=== PATIENT | female | born 1945 | race Caucasian/White ===

== ENCOUNTER → 2017-08-15 | Outpatient (CLI) | payer MEDICARE ==
[~2017-08-15] MED LIST: AMLO10TA2 PO; ASPI-983 PO; BNZ40T PO; CARV12.53 PO; CETI10TA20 PO; FURO20TA4 PO; HYDR-3876 PO; HYDR25TA4 PO; LOSA100T28 PO; OXYB5TAB9 PO; PRAV40TA2 PO
--- NOTE | 2017-08-15 08:18 | Diagnostic Imaging Report ---
INDICATION: Hypertension, and obesity history of diabetes. TECHNIQUE: Multiple real-time grayscale sonographic images, color and duplex Doppler images were obtained of the urinary system. FINDINGS: The aortic velocity is 125 cm/sec. The RIGHT kidney measures 11.0 x 4.7 x 4.6 cm. The right renal parenchyma and collecting system appear unremarkable. Right renal artery is visualized in its mid and distal aspect, obscured proximally. The maximum renal artery velocity is distally at 119cm/sec. The maximum renal artery/aortic ratio is 0.952. The LEFT kidney measures 10.8 x 5.3 x 4.9 cm. The left renal parenchyma and collecting system appear unremarkable. Left main renal artery is visualized in its mid and distal aspect, obscured proximally. The maximum renal artery velocity is mid aspect at 96cm/sec. The maximum renal artery/aortic ratio is 0.768. The urinary bladder is unremarkable. Bilateral ureteral jets are present. IMPRESSION: 1. Unremarkable renal ultrasound with doppler. (RA/AO ratios > 3.0 may suggest potential hemodynamically significant stenosis.) Dictated by: Dictated on workstation # [id number]
== END ==
LOC: RAD 06:52
PROVIDERS: ATTEND Internal Medicine Cardiovascular Disease
DX: E66.9 Obesity, unspecified (principal); I10 Essential (primary) hypertension; E78.2 Mixed hyperlipidemia; R00.2 Palpitations; E11.9 Type 2 diabetes mellitus without complications; Z82.49 Family history of ischemic heart disease and other diseases of the circulatory system
CPT/HCPCS: 93975

== ENCOUNTER → 2017-08-23 | Outpatient (CLI) | payer MEDICARE ==
[~2017-08-23] MED LIST changes: +CATHETER FLUSH 10 ML SYR IV PRN
[2017-08-23 08:50] VITALS: BP 148/63
[2017-08-23 09:06] VITALS: BP 239/72
[2017-08-23 09:07] VITALS: BP 231/63
--- NOTE | 2017-08-23 17:21 | STRESS TEST ---
DATE OF SERVICE: EXERCISE MYOVIEW STRESS TEST REPORT REFERRING PHYSICIAN: Lexy Chan. Baseline heart rate is 58, baseline blood pressure 170/62. Baseline EKG is sinus rhythm with no ischemic changes. In summary, the patient was injected with 10.82 mCi of technetium-99 Myoview and the resting images were obtained. Then, she started exercising with a baseline heart rate, blood pressure and EKG mentioned above. She was able to exercise for 5 minutes on a standard Nicholas protocol. With peak exercise level, EKG was showing minimal nondiagnostic changes. There was severe hypertension noted with blood pressure 231/63 at peak stress level. The patient was injected with 32.0 mCi of technetium-99 Myoview. The resting and stress images were reviewed and compared in the short axis, horizontal long axis, and vertical long axis views. Review of the images showed breast attenuation affecting the quality of the images with mild ischemia involving the mid to apical anterior wall and anterolateral wall. SSS is 8, SDS 6, TID value 1.04. On the gated images, the left ventricle appeared to be in normal size with normal contractility. Calculated ejection fraction is 76%. CONCLUSION: 1. Fair exercise tolerance, a total of 5 minutes on standard Nicholas protocol, total of 7 METS achieving 100% of maximum expected heart rate. 2. Severe hypertensive response to exercise, returned to baseline during recovery. 3. Minimal nondiagnostic EKG changes with exercise, returned to baseline during recovery. 4. Breast attenuation affecting the quality of the images with questionable mild ischemia involving the mid to apical anterior wall and anterolateral wall. 5. Normal left ventricular size with normal contractility. Calculated ejection fraction of 76%. Job ID: [id number] DocumentID: [id number] Dictated Date: 08/23/2017 13:51:25 Bodybuilder Date: 08/23/2017 17:20:19 Dictated By: DAVID TINSLEY MD
== END ==
LOC: CARD 07:07 → EDUNIT# 07:30
PROVIDERS: ATTEND Internal Medicine Cardiovascular Disease
DX: I10 Essential (primary) hypertension (principal); E78.2 Mixed hyperlipidemia; R00.2 Palpitations; E11.9 Type 2 diabetes mellitus without complications; E66.9 Obesity, unspecified; Z82.49 Family history of ischemic heart disease and other diseases of the circulatory system
CPT/HCPCS: 78452; 93017

== ENCOUNTER 2017-09-06 06:40 | Day surgery (SDC) | payer MEDICARE ==
[2017-09-06] VITALS (11 sets, daily range): BP systolic 102–145; BP diastolic 49–84
[~2017-09-06] VITALS: Ht 160 cm; Wt 84.8 kg
[2017-09-06] MEDS ORDERED: NS IV 1000 ML 1,000 ML IV SCH ×2 (06:45→09:03)
[2017-09-06] MEDS ORDERED: HEParin (CATH LAB) 2,000 ML IV ONE (06:48)
[2017-09-06] MEDS ORDERED: NS IV 1000 ML 1,000 ML ONE (06:48)
[2017-09-06] MEDS ORDERED: LIDOCAINE 1% INJ 20 ML 20 ML VIAL ONE (06:48)
[2017-09-06] MEDS ORDERED: BNZ40T PO (07:17)
[2017-09-06] MEDS ORDERED: FURO20TA4 PO (07:17)
[2017-09-06] MEDS ORDERED: OXYB5TAB9 PO (07:17)
[2017-09-06] MEDS ORDERED: CETI10TA20 PO (07:17)
[2017-09-06] MEDS ORDERED: AMLO10TA2 PO (07:17)
[2017-09-06] MEDS ORDERED: CARV12.53 PO (07:17)
[2017-09-06] MEDS ORDERED: PRAV40TA2 PO (07:17)
[2017-09-06] MEDS ORDERED: ASPI-983 PO (07:17)
[2017-09-06] MEDS ORDERED: LOSA100T28 PO (07:17)
[2017-09-06] MEDS ORDERED: HYDR25TA4 PO (07:17)
[2017-09-06 07:18] LABS: HEMOGLOBIN 12.2 G/DL (11.5-16.0); MEAN PLATELET VOLUME 12.2 FL (7.4-10.4); RED BLOOD COUNT 3.95 10^6/uL (4.35-5.85); RED CELL DISTRIBUTION WIDTH 12.9 % (10.0-14.5); WHITE BLOOD COUNT 8.8 10^3/uL (4.3-11.0)
[2017-09-06] MEDS ORDERED: HYDR-3876 PO (07:20)
[2017-09-06 07:28] LABS: PROTHROMBIN TIME PATIENT 13.3 SEC (12.2-14.7)
[2017-09-06 07:38] LABS: ALBUMIN 4.2 GM/DL (3.2-4.5); BILIRUBIN,TOTAL 0.7 MG/DL (0.1-1.0); CALCIUM 9.2 MG/DL (8.5-10.1); CREATININE SERUM 1.44 MG/DL (0.60-1.30); POTASSIUM 3.2 MMOL/L (3.6-5.0); TOTAL PROTEIN 7.5 GM/DL (6.4-8.2)
[2017-09-06] MEDS ORDERED: MIDAZOLAM 5 MG/5 ML (VERSED) VIAL ONE (07:56)
[2017-09-06] MEDS ORDERED: fentaNYL INJECTION 100 MCG/2 ML AMP ONE (07:56)
--- NOTE | 2017-09-06 08:35 | Diagnostic Imaging Report ---
INDICATION: Abnormal stress test, chest pain, hypertension. FINDINGS: Heart size is at the upper limits of normal. There is no substantial vascular congestion and there is no evidence for edema, pneumonia, effusion or pneumothorax. IMPRESSION: Upper limits heart size but no acute appearing abnormality. Dictated by: Dictated on workstation # [id number]
--- NOTE | 2017-09-06 08:42 | Cardiac Procedure Note-CS/ASA ---
Pre-Procedure Note Pre-Op Procedure Note H&P Reviewed The H&P was reviewed, patient examined and no changes noted. Date H&P Reviewed: Sep 06, 2017 Time H&P Reviewed: 08:41 Conscious Sedation Pre-Proced Time Reviewed: 08:41 ASA Class: 3 Airway Mallampati Classification: (wichita appropriate class) I. II. III, IV Lungs Heart ASA score ASA 1: a normal healthy patient ASA 2: a patient with a mild systemic disease (mid diabetes, controlled hypertension, obesity x ASA 3: a patient with a severe systemic disease that limits activity (angina , COPD, prior Myocardial infarction) ASA 4: a patient with an incapacitating disease that is a constant threat to life (CHF, renal failure) ASA 5: a moribund patient not expected to survive 24 hrs. (ruptured aneurysm) ASA 6: a declared brain patient whose organs are being harvested. For emergent operations, add the letter E after the classification Grade 3 Sedation Plan: Analgesia, Amnesia, Plan communicated to team members, Discussed options with patient/fam, Discussed risks with patient/fam Note The patient is an appropriate candidate to undergo the planned procedure, sedation, and anesthesia. The patient immediately re-assessed prior to indication. DAVID TINSLEY MD Sep 06, 2017 08:42
--- NOTE | 2017-09-06 09:06 | Discharge Inst-Post CATH ---
Discharge Inst-CATH Post Cardiac Cath D/C Inst Follow Up/Plan Appointment with Dr. Bennett's office in 2-4 weeks CARDIAC CATH DISCHARGE INSTRUCTIONS *Hold Metformin for 48 hours post heart cath. ACTIVITY * Go Home directly and rest. * Limit activity of the leg (or wrist if it was used) for 7 days including aerobics, swimming, jogging, bicycling, etc. * Restrict stair-climbing for 7 days if possible, if not, climb up with your non -cath leg, then bring together on the same step. * Avoid lifting, pushing, pulling or excessive movement of the affected extremity for 7 days. * Customary sexual activity may be resumed after 2 days-use caution not to use a position that strains or causes pain to the affected extremity. * No driving for 24 hours. * NO SMOKING. * Avoid straining for bowel movements for 7 days. * Gentle walking on level ground is allowed. * Returning to work will depend on the type of procedure and the results. Your doctor will discuss this with you. CALL YOUR DOCTOR FOR ANY OF THE FOLLOWING: *If bleeding from the puncture site occurs- Apply gentle pressure to site with clean cloth and call your doctor or EMS. * If a knot or lump forms under the skin, increases in size, or causes pain. * If bruising appears to be worsening or moving further down your leg instead of disappearing. * Temperature above 101 F. CARE OF YOUR GROIN INCISION; * Bruising or purple discoloration of the skin near the puncture site is common. * You may shower only, no bathtub bathing for 5 days. Be careful to avoid slipping as your leg may feel stiff. * If a closure device was used on your femoral artery, please see the attached guide regarding care of the device and your leg. * REMOVE the dressing from your groin the next day after your procedure in the shower. CARE OF YOUR WRIST INCISION; * Bruising or purple discoloration of the skin near the puncture site is common. * You may shower. * DO NOT submerge wrist. * Remove dressing in 24 hours. DAVID BENNETT MD Sep 06, 2017 09:06
--- NOTE | 2017-09-06 09:11 | Cardiac Cath Report ---
Cardiac Cath Report Physician (s)/Patient Support Assistant (s) Physician DAVID TINSLEY MD Pre-Procedure Diagnosis Pre-Procedure Diagnosis: Coronary artery disease, malignant hypertension Post-Procedure Note Procedure Start Date: Sep 06, 2017 Name of Procedure: Left heart catheterization Selective bilateral renal angiogram Findings/Procedure Note PROCEDURE NOTE: After explaining the procedure to the patient, all pros and cons were explained , all questions were answered. The patient signed the consent and then she was placed on the cardiac catheterization laboratory. Groin was prepped SL fashion local anesthesia was used. Sheath placed in the right femoral artery. Angie right and left catheter were used to access the coronary system. Angie right was prolapsed into the left ventricular cavity, pressure was measured, pullback LV to aorta was done, no left ventriculogram was done The Angie right catheter was selectively engaged in the left renal artery and angiogram was done then selective right renal angiogram was done after engaging in the right renal artery At the end of the procedure the sheath was removed. 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 Mild coronary artery disease nonobstructive disease 2. Mildly elevated left ventricular end-diastolic pressure, hypertensive heart disease 3. Normal renal arteries with no obstructive disease DISCUSSION AND RECOMMENDATION: Continue maximizing medical therapy no intervention is needed Anesthesia Type: Conscious Sedation Estimated blood loss (mL): 10 ml Contrast Amount: 40 ml Total Radiation Dose: 1047 mGy Post-Procedure Diagnosis Post-operative diagnosis: Coronary artery disease Malignant hypertension Hyperlipidemia Chest pain nonspecific etiology DAVID TINSLEY MD Sep 06, 2017 09:10
[2017-09-06] MEDS ORDERED: PATIENT MAY USE OWN MEDS, ALL PO SCH (09:15)
== END 2017-09-06 13:35 | disposition home or self-care (01) ==
LOC: CATH 06:40 → SURG 09:21 → CATH 13:35
PROVIDERS: ATTEND Internal Medicine Cardiovascular Disease
DX: I25.10 Atherosclerotic heart disease of native coronary artery without angina pectoris (principal); I10 Essential (primary) hypertension; E78.5 Hyperlipidemia, unspecified; R07.9 Chest pain, unspecified; E11.9 Type 2 diabetes mellitus without complications; R09.89 Other specified symptoms and signs involving the circulatory and respiratory systems; Z79.899 Other long term (current) drug therapy; Z79.82 Long term (current) use of aspirin; F17.210 Nicotine dependence, cigarettes, uncomplicated; Z68.32 Body mass index [BMI] 32.0-32.9, adult
CPT/HCPCS: 36252; 36415; 71045; 80053; 80061; 85027; 85610; 85730; 87081; 93458

== ENCOUNTER → 2018-01-09 | Outpatient (CLI) | payer MEDICARE ==
[~2018-01-09] MED LIST changes: -AMLO10TA2 PO; +AMLO10TA6 PO; +B12/1TAB PO; +BENA40TA5 PO; -BNZ40T PO; -CATHETER FLUSH 10 ML SYR IV PRN; -LOSA100T28 PO; +LOSA100T8 PO; +NEBI5TAB8 PO
== END | disposition home or self-care (01) ==
LOC: PREOP 06:38
PROVIDERS: ATTEND Urology
DX: Z01.818 Encounter for other preprocedural examination (principal)

== ENCOUNTER 2018-01-10 07:14 | Day surgery (SDC) | payer MEDICARE ==
[~2018-01-10] VITALS: Ht 160 cm; Wt 84.8 kg
[~2018-01-10 07:14] MED LIST changes: -B12/1TAB PO; -NEBI5TAB8 PO
[2018-01-10 07:35] VITALS: BP 178/85
--- NOTE | 2018-01-10 07:38 | Progress Note-Pre Operative ---
Pre-Operative Progress Note H&P Reviewed The H&P was reviewed, patient examined and no changes noted. Date Seen by Provider: Jan 10, 2018 Time Seen by Provider: 07:38 Date H&P Reviewed: Jan 10, 2018 Time H&P Reviewed: 07:38 Pre-Operative Diagnosis: CYSTOCELE, MIXED INCONTINENCE, ISD, AND OAB PORSCHE CHAMPAGNE MD Jan 10, 2018 7:38 am
--- NOTE | 2018-01-10 07:39 | Progress Note-Post Operative ---
Post-Operative Progess Note Surgeon (s)/Four Corner Former Machine Operator (s) Surgeon PORSCHE CHAMPAGNE MD Four Corner Former Machine Operator: NONE Pre-Operative Diagnosis CYSTOCELE, MIXED INCONTINENCE, ISD, AND OAB Post-Operative Diagnosis SAME Procedure & Operative Findings Date of Procedure 01/10/18 Procedure Performed/Findings ANTERIOR REPAIR, PVS AND CYSTOSCOPY Anesthesia Type GENERAL Estimated Blood Loss Estimated blood loss (mL): NEGLIGIBLE Specimens/Packing Specimens Removed NONE TO PATHOLOGY Packing: ESTRACE VAGINAL PACK PORSCHE CHAMPAGNE MD Jan 10, 2018 7:39 am
[2018-01-10] MEDS ORDERED: cefTRIAXone 1 GM/NS 50 ML IVPB IV ONE ×2 (07:45)
[2018-01-10] MEDS ORDERED: HYDROcodone/APAP 10 MG/325 MG (LORTAB) TAB PO PRN (07:45)
[2018-01-10] MEDS ORDERED: B12/1TAB PO (08:03)
[2018-01-10] MEDS ORDERED: NEBI5TAB8 PO (08:03)
[2018-01-10] MEDS ORDERED: LACTATED RINGERS 1,000 ML IV SCH (09:00)
[2018-01-10] MEDS ORDERED: ONDANSETRON 4 MG/2 ML (SDV) Z0FRAN ONE (09:03)
[2018-01-10] MEDS ORDERED: LIDOCAINE PF 2% 5 ML (XYLOCAINE) VIAL ONE (09:03)
[2018-01-10] MEDS ORDERED: SEVOFLURANE (ULTANE) 15 ML INHAL SOLN ONE ×3 (09:03→11:08)
[2018-01-10] MEDS ORDERED: proPOfol 200 MG/20 ML (DIPRIVAN) VIAL IV ONE (09:03)
[2018-01-10] MEDS ORDERED: fentaNYL INJECTION 100 MCG/2 ML AMP ONE (09:13)
[2018-01-10] MEDS ORDERED: MIDAZOLAM 2 MG/2 ML (VERSED) VIAL ONE (09:13)
[2018-01-10] MEDS ORDERED: LIDOCAINE/EPI 1%-1:200,000 (XYLOCAINE) 10 ML VIAL ONE (09:23)
[2018-01-10] MEDS ORDERED: ESTRADIOL VAGINAL CREAM 42.5 GM (ESTRACE) VG ONE (09:24)
[2018-01-10] MEDS ORDERED: ATROPINE INJ 0.4 MG/ML SDV ONE (10:51)
[2018-01-10] MEDS ORDERED: ROCURONIUM 10 MG/ML 5 ML SYRINGE IV ONE (10:51)
[2018-01-10] MEDS ORDERED: LACTATED RINGERS 1,000 ML IV ONE (10:52)
[2018-01-10] MEDS ORDERED: morphine INJ 10 MG/ML 1ML (SYR OR VIAL) ONE (11:16)
[2018-01-10] MEDS ORDERED: MEPERIDINE (DEMEROL) INJ 50 MG/ML IVP ONE (11:30)
[2018-01-10] MEDS ORDERED: morphine INJ 10 MG/ML 1ML (SYR OR VIAL) IVP ONE (11:30)
[2018-01-10] MEDS ORDERED: ONDANSETRON 4 MG/2 ML (SDV) Z0FRAN IVP PRN (11:30)
[2018-01-10] MEDS ORDERED: KETOROLAC 30 MG/ML VIAL IVP ONE (11:30)
[2018-01-10 12:38] VITALS: BP 142/59
[2018-01-10] MEDS: LACTATED RINGERS 1,000 ML IV SCH ×2 (14:01→21:45)
[2018-01-10 15:55] VITALS: BP 138/59
--- NOTE | 2018-01-10 16:05 | OPERATIVE REPORT ---
DATE OF SERVICE: 01/10/2018 PREOPERATIVE DIAGNOSES: 1. Large cystocele. 2. Mixed urinary incontinence with overactive bladder and intrinsic sphincter deficiency. POSTOPERATIVE DIAGNOSES: 1. Large cystocele. 2. Mixed urinary incontinence with overactive bladder and intrinsic sphincter deficiency. OPERATION PERFORMED: Anterior repair, pubovaginal sling and cystoscopy. SURGEON: Luan Champagne MD ANESTHESIA: General. COMPLICATIONS: None. DESCRIPTION OF PROCEDURE: Under satisfactory general anesthesia, the patient in extended lithotomy position, genitalia were prepped and draped in the usual sterile fashion using a separate vaginal prep. Ellis catheter was inserted draining clear urine. The anterior vaginal wall was infiltrated with lidocaine and epinephrine for . A midline incision was made in the anterior vaginal wall for several centimeters all around the cystocele . The mucosa was dissected free from the underlying fascia with no problem. The fascia was approximated with interrupted 2-0 Vicryl giving excellent support to the bladder. The Ellis catheter was removed and cystoscopy confirmed the integrity of the bladder, urethra, ureters, no foreign body visualized. The bladder was left half full to perform a manual Valsalva maneuver which was negative. The catheter was reinserted draining clear fluid. The excess vaginal mucosa was sharply excised and the mucosa was approximated with a running 2-0 Vicryl Rapide suture. Catheter was reinserted draining clear fluid. Estimated blood loss was negligible. Needle, sponge and instrument counts were correct x2. The patient tolerated the procedure and anesthesia well and was sent to recovery room in stable condition after inserting an Estrace vaginal pack. Job ID: [id number] DocumentID: [id number] Dictated Date: 01/10/2018 11:27:00 Land Acquisition Specialist Date: 01/10/2018 16:04:53 Dictated By: LUAN CHAMPAGNE MD
[2018-01-10] MEDS: KETOROLAC 30 MG/ML VIAL IV PRN (18:50)
[2018-01-10 20:20] VITALS: BP 117/46
[2018-01-11 00:35] VITALS: BP 120/60
[2018-01-11] MEDS: KETOROLAC 30 MG/ML VIAL IV PRN ×2 (00:35→05:37)
[2018-01-11 04:00] VITALS: BP 128/62
[2018-01-11] MEDS: LACTATED RINGERS 1,000 ML IV SCH (05:36)
[2018-01-11] MEDS ORDERED: FLU QUADRIvalent (5+ YOA) 2018-2019 (AFLURIA) 0.5 ML IM ONE ×2 (07:15→15:14)
[2018-01-11] MEDS ORDERED: LEVOFLOXACIN 250 MG/50 ML IVPB 50 ML IV SCH (07:40)
[2018-01-11 08:18] VITALS: BP 120/65
--- NOTE | 2018-01-11 11:41 | Progress Note-Urology ---
Progress Note-Urology Progress Notes/Assess & Plan Progress/Assessment & Plan DOING VERY WELL. FEELS GREAT. VOIDING WELL. EMPTIES WELL. DRY. [id number] 87% , ASYMPTOMATIC. SMOKER WITH COPD. WE WILL OBSERVE ON R.A BEFORE DISCHARGE, CONSULT DR ANTWAN LITTLE. Final Diagnosis CYSTOCELE, MIXED INCONTINENCE, OAB, ISD PORSCHE CHAMPAGNE MD Jan 11, 2018 11:41 am
--- NOTE | 2018-01-11 11:43 | Discharge Inst-Urology ---
Discharge Inst-Urology Discharge Medications New, Converted, or Re-newed RX: RX on Chart Patient Instructions/Follow Up Plan Please make appointment to been seen in office in 2 weeks. Rest till then Stay off ASA and Ditropan Keep bowels soft and moving Showers, no bath Increase oral fluids for 48 hours and then as needed. Diet as tolerated. If questions or concerns contact your physician Or seek help at emergency department. PORSCHE CHAMPAGNE MD Jan 11, 2018 11:43 am
[2018-01-11 12:30] VITALS: BP 103/53
--- NOTE | 2018-01-11 18:34 | Anesthesia-General Post-Op ---
General Patient Condition Mental Status/LOC: Same as Preop Cardiovascular: Satisfactory Nausea/Vomiting: Absent Respiratory: Satisfactory Pain: Controlled Complications: Absent Post Op Complications Complications None Follow Up Care/Instructions Patient Instructions None needed. Anesthesia/Patient Condition Patient Condition Patient was seen this morning prior to her discharge to home and she was doing well, no complaints, stable vital signs, no apparent adverse anesthesia problems. YVONNE TENA DO Jan 11, 2018 18:34
== END 2018-01-11 15:45 | disposition home or self-care (01) ==
LOC: SDC 07:14 → WS 12:20 → SDC 01-11 15:45
PROVIDERS: ATTEND Urology
DX: N81.10 Cystocele, unspecified (principal); N36.42 Intrinsic sphincter deficiency (ISD); N32.81 Overactive bladder; N39.46 Mixed incontinence; J44.9 Chronic obstructive pulmonary disease, unspecified; F17.200 Nicotine dependence, unspecified, uncomplicated; E78.5 Hyperlipidemia, unspecified; G47.33 Obstructive sleep apnea (adult) (pediatric); E11.9 Type 2 diabetes mellitus without complications; I10 Essential (primary) hypertension; Z79.899 Other long term (current) drug therapy; Z79.82 Long term (current) use of aspirin
CPT/HCPCS: 87081; 90471; 90686; 94010

== ENCOUNTER → 2019-07-30 | Outpatient (CLI) | payer MEDICARE ==
[~2019-07-30] MED LIST changes: -AMLO10TA6 PO; +AMLO10TA7 PO; +B12/1TAB PO; -CETI10TA20 PO; +CETI10TA21 PO; +LOSA100T57 PO; -LOSA100T8 PO; +NEBI5TAB8 PO; +OXYB5TAB13 PO; -OXYB5TAB9 PO
[2019-07-30 08:04] LABS: CALCIUM 9.5 MG/DL (8.5-10.1); POTASSIUM 3.7 MMOL/L (3.6-5.0)
[2019-07-30 08:05] LABS: ALBUMIN 4.1 GM/DL (3.2-4.5); BILIRUBIN,TOTAL 0.6 MG/DL (0.1-1.0); TOTAL PROTEIN 7.1 GM/DL (6.4-8.2)
== END ==
LOC: LAB FS 07:12
PROVIDERS: ATTEND Family Medicine
DX: E78.5 Hyperlipidemia, unspecified (principal); R73.03 Prediabetes
CPT/HCPCS: 36415; 80053; 80061; 83036